=== PATIENT | female | born 1985 | race Caucasian/White ===

== ENCOUNTER 2018-01-06 18:00 | Emergency (ER) | payer OTHER, SELFPAY ==
[2018-01-06 18:01] VITALS: BP 116/77; PULSE 100; RESP 16; TEMP 35.8; BMI 36.1
--- NOTE | 2018-01-06 18:39 | ED.VISSUMM ---
- ER Visit Summary Date of Service: 01/06/18 Chief Complaint: Hemorrhoids History of Present Illness: The patient is a 32 F with history of hemorrhoids complains of rectal pain. She has diarrhea and no constipation. She saw her PCP and she has an appointment with a GI physician in 2 weeks. She has no new symptoms. She simply wants pain control. Physical Examination: Patient has a soft and nontender abdomen, rectal exam reveals 3 different small hemorrhoids, there is no thrombosis of either hemorrhoid. Emergency Department Course and Treatment: Patient will be treated with analgesia. She will be discharged in stable condition Impression: External hemorrhoids, nonthrombosed This note was generated with [employer] dictation software. It may contain incorrect words, spelling, and punctuation that were not noted in review of the chart prior to signing ED Disposition - Plan for ED Patient: Disposition: Home or Assisted Living Chief Complaint: Other, Pain/Inj Prescriptions: Hydrocodone/Acetaminophen [[place] 5-325 Tablet] 1 - 2 ea PO 4X/DAY PRN PRN 3 Days #12 tab PRN Reason: Pain Referrals: Larry Owusu, [Primary Care Provider] - 3-5 Days Additional Instructions: If you have fever chills or you noticed a hard lump or your hemorrhoids are return to the emergency department.
[2018-01-06] MEDS: oxyCODONE 5 MG Tablet PO (18:45)
[2018-01-06 19:00] VITALS: RESP 16
--- NOTE | 2018-01-06 19:01 | ED.RN ---
REVIEWED D/C INSTRUCTIONS, FOLLOW UP CARE, PRESCRIPTION, AND S/S THAT WOULD WARRANT A RETURN TO THE ED WITH PT. PT VERBALIZED AN UNDERSTANDING AND DENIES FURTHER QUESTIONS FOR THIS RN. PT SKIN P/W/D, RESP EVEN AND UNLABORED, PT A&O X 3, NO DISTRESS NOTED. PT AMBULATED OUT OF ED, GAIT STEADY.
== END 2018-01-06 19:02 | disposition home or self-care (01) ==
LOC: ED 18:56
PROVIDERS: Emergency Provider Emergency Medicine; Family Provider Student in an Organized Health Care Education/Training Program; PCP Student in an Organized Health Care Education/Training Program
DX: K64.4 Residual hemorrhoidal skin tags (principal); F32.9 Major depressive disorder, single episode, unspecified; Z79.899 Other long term (current) drug therapy
CPT/HCPCS: 99283

== ENCOUNTER 2024-11-27 18:26 | Emergency (ER) | payer OTHER, MEDICAID, SELFPAY ==
[2024-11-27 18:27] VITALS: BP 129/78; PULSE 64; RESP 18; TEMP 36.4; O2SAT 99; BMI 31.1
--- NOTE | 2024-11-27 19:29 | EDS_ITS ---
HPI History of Present Illness Chief Complaint: Nausea/Vomiting PFSH PFSH Medical History no medical history Home Medications ?Medication ?Instructions ?Recorded ?Last Taken ?Type Phenylephrine 0.25% [Catherine-Med] 1 supp RECTAL BID Unknown History fluoxetine 10 mg capsule 10 mg PO DAILY 01/06/18 Unkn own History hydrocodone-acetaminophen 5-325mg 1 - 2 ea PO 4X/DAY P RN PRN Pain 3 01/06/18 Unknown Rx 5mg-325mg days #12 tabs lactase 3,000 unit tablet (Lactaid) 3,000 unit PO TID 01/06/18 Unknown History ondansetron 4 mg disintegrating 4 mg PO Q8H PRN Nausea 01/06/18 Unknown History tablet (Zofran ODT) phentermine 37.5 mg tablet 37.5 mg PO DAILY 01/06/18 U nknown History metoclopramide HCl 5 mg tablet 5 mg PO Q8H PRN nausea and 11/27/24 Unknown Rx (Reglan) vomiting 7 days #20 tabs Allergy/AdvReac Type Severity Reaction Status Date / Time No Known Allergies Allergy Verified 11/27/24 18:29 Family History no significant family his Surgical History no surgical history Social History Smoking Status: Current every day smoker tobacco type: cigarettes and e- cigarettes EXAM Physical Exam Const Vital Signs: 11/27/24 18:27 11/27/24 20:27 11/27/24 22:00 Temperature 97.5 F L Temperature Source Oral Pulse Rate 64 50 L 64 Respiratory Rate 18 16 16 Blood Pressure 129/78 H 110/62 122/72 H Blood Pressure Mean 95 78 88 Pulse Ox 99 100 97 Oxygen Delivery Method Room Air Room Air Room Air 11/27/24 22:22 Temperature 97.5 F L Temperature Source Pulse Rate 53 L Respiratory Rate 16 Blood Pressure 116/67 Blood Pressure Mean 83 Pulse Ox 99 Oxygen Delivery Method MDM MDM MDM Narrative Medical decision making narrative: HISTORY OF PRESENT ILLNESS: Chief complaint: Nausea vomit 38-year-old female presents with nausea vomiting. Notes on Monday she found out she is about 8 weeks . She now she is vomiting Zofran is not helping. She further states in the evening she gets more nausea or vomiting. No vaginal bleeding. No passing any tissue. She is a G3, P2 REVIEW OF SYSTEMS: Pertinent positives: Nausea vomiting Pertinent negatives: Abdominal pain, vaginal bleeding PHYSICAL EXAM: Nursing triage notes reviewed, Vital signs reviewed Constitutional: please see [facility] HENT: MMM Eyes: Pupils equal round and reactive to light, Extraocular muscles intact Neck: No stridor, no JVD, full neck ROM Lungs: Clear to auscultation, No wheezing or rales. No increased work of breathing, no conversational dyspnea, no accessory muscle use, no nasal flaring. No respiratory distress noted Heart: Regular rate and rhythm, No murmurs, No rubs and No gallops, 2+ distal pulses (radial, femoral, posterior tibial) in all extremities Abdomen: Soft, there is no tenderness, rigidity, rebound or guarding, no obvious peritoneal signs, no palpable pulsatile abdominal masses, no auscultated abdominal bruit : No CVAT Extremities: No edema Neuro: No new focal neurological deficits, cranial nerves II through XII intact, 5/5 strength in all present extremities. Intact sensation to light touch in all present extremities, 2+ reflexes bilateral patella tendons. Skin: No rash or lesions noted MEDICAL DECISION MAKING: Chief Complaint: please see HPI External records reviewed: [Reviewed prior imaging. No recent ultrasounds noted Factors affecting care: First trimester Social determinants of health: History obtained from others: none Consults: none [facility] Narrative: The patient was initially hemodynamically stable, afebrile and nontoxic- appearing. Exam without peritoneal signs I considered the following differential diagnosis: Dehydration, electrolyte abnormality, miscarriage, ectopic I obtained lab to further determine if the patient was suffering from a life- threatening etiology. Initially resuscitated the patient with IV fluids, Pepcid and Reglan. ALL IMAGES (IF OBTAINED) HAVE BEEN PERSONALLY REVIEWED AND INTERPRETED BY MYSELF. CBC leukocytosis suggestive of systemic inflammation, no anemia or thrombocytopenia. Leukocytosis likely reactive from and nausea and vomiting. BMP without significant electrolyte abnormalities, there is noted to be a very mild metabolic acidosis with a bicarb of 19.7 (lab reference range 21-32). Likely related to starvation ketoacidosis as evidenced by nausea vomiting and ketonuria. Patient was given fluids, Reglan. On reevaluation patient is tolerating p.o. She is prescribed Reglan as an outpatient. Strict return precautions were discussed. Follow-up instructions were given. The patient and/or family, caregivers express understanding. The patient and/or family, caregivers agrees with the plan. Shared decision making: I will have a discussion with the patient and or visitors regarding risk/benefits of further testing or admission. They will be made aware of of the risk/benefits inherent in this decision they will be given the opportunity to voice understanding. Total critical care time today provided was at least 0 minutes. This excludes separately billable procedures. Critical care time (if documented) is secondary to the patient having high probability of clinically significant/life threatening deterioration in the patient's condition which required my urgent intervention. Impression: 1. Nausea vomiting 2. First trimester Dispo: Discharge home This note was generated with [employer] dictation software. It may contain incorrect words, spelling, and punctuation that were not noted in review of the chart prior to signing. Lab Data Labs: Laboratory Results - last 24 hr 11/27/24 11/27/24 11/27/24 19:30 21:18 22:26 WBC 13.4 H RBC 4.30 Hgb 13.2 Hct 38.5 MCV 89.5 MCH 30.7 MCHC 34.3 RDW Std Deviation 40.2 RDW Coeff of [place] 12.2 Plt Count 278 MPV 12.3 H Immature Gran % (Auto) 0.500 Neut % (Auto) 72.9 H Lymph % (Auto) 17.4 L [place] % (Auto) 8.0 Eos % (Auto) 0.5 Baso % (Auto) 0.7 Absolute Neuts (auto) 9.8 H Absolute Lymphs (auto) 2.34 Nucleated RBC % 0 Sodium 136 Potassium 3.5 Chloride 103 Carbon Dioxide 19.7 L Anion Gap 13 BUN 10 Creatinine 0.82 Estim Creat Clear Calc 102.06 Est GFR (MDRD) Non-Af 95 BUN/Creatinine Ratio 11.7 Glucose 86 Calcium 9.0 Urine Color Yellow Urine Clarity Clear Urine pH 6.0 Ur Specific [place] 1.025 Urine Protein 30 H Urine Glucose (UA) Normal Urine Ketones 150 A* Urine Occult Blood Negative Urine Nitrite Negative Urine Bilirubin Negative Urine Urobilinogen 4 H Ur Leukocyte Esterase 25 H Urine RBC 0 SEEN Urine WBC 0-5 SEEN Ur Squamous Epith Cells 0-5 SEEN Urine Bacteria 0 SEEN Urine Mucus 1+ Discharge Plan Triage Chief Complaint: Nausea/Vomiting ED Provider: Eyad Trejo Dx/Rx/DC Orders Instructions: ED , ED Vomiting (Adult) Prescriptions: New metoclopramide HCl [Reglan] 5 mg tablet 5 mg PO Q8H PRN (Reason: nausea and vomiting) 7 Days Qty: 20 0RF No Action phentermine 37.5 MG tablet 37.5 mg PO DAILY fluoxetine 10 MG capsule 10 mg PO DAILY lactase [Lactaid] 3,000 UNIT tablet 3,000 unit PO TID ondansetron [Zofran ODT] 4 MG tablet,disintegrating 4 mg PO Q8H PRN (Reason: Nausea) Phenylephrine 0.25% [Catherine-Med] 1 SUPP Suppos. 1 supp RECTAL BID hydrocodone-acetaminophen 1 EACH tablet 1 - 2 ea PO 4X/DAY PRN PRN (Reason: Pain) 3 Days Qty: 12 0RF Primary Care Provider: Larry Owusu Referrals: Larry Owusu DO [Primary Care Provider] - Print Language: Slovak
[2024-11-27 20:27] VITALS: BP 110/62; PULSE 50; RESP 16; O2SAT 100
[2024-11-27] MEDS: 0.9% Normal Saline (1000mL) 1,000 ML 999 ML IV (20:48)
[2024-11-27 20:58] LABS: Hematocrit 38.5 % (37-47); Hemoglobin 13.2 g/dL (12.0-15.0); Immature Granulocytes Count 0.070 X10^3/uL (0.0-0.0); Mean Corp Hgb Conc 34.3 g/dL (32-36); Mean Corpuscular Volume 89.5 fL (81-99); Mean Platelet Vol. 12.3 fl (6.2-12.0); NRBC Flagged by Analyzer 0 % (0-5); Platelet Count 278 K/mm3 (150-450); RBC Distribution Width CV 12.2 % (11.6-14.6); RBC Distribution Width SD 40.2 fl (35.1-43.9); Red Blood Count 4.30 M/mm3 (4.2-5.4); White Blood Count 13.4 K/mm3 (4.4-11.0)
[2024-11-27 21:23] LABS: Red Blood Cells-Urine 0 SEEN /hpf (0-5)
[2024-11-27 21:27] LABS: Color, Urine Yellow (Yellow); Glucose, Dipstick Normal (Normal); Leukocyte Esterase-Dipstick 25 /ul (Negative); Nitrite-Dipstick Negative (Negative); Occult Blood-Urine Negative /ul (Negative); Protein-Dipstick 30 mg/dl (Negative); Specific Gravity, Urine 1.025 (1.002-1.030); Urine Bilirubin Dipstick Negative (Negative)
[2024-11-27 21:41] LABS: Ketone-Dipstick 150 mg/dl (Negative)
[2024-11-27 21:42] LABS: Mucous, Urine 1+ /hpf (<or=2+); Squamous Epithelial Cells - UA 0-5 SEEN /hpf (5-10)
[2024-11-27 22:00] VITALS: BP 122/72; PULSE 64; RESP 16; O2SAT 97
[2024-11-27 22:22] VITALS: BP 116/67; PULSE 53; RESP 16; TEMP 36.4; O2SAT 99
[2024-11-27 22:48] LABS: Anion Gap 13 (5-15); BUN 10 mg/dL (4-19); BUN/Creat Ratio 11.7 RATIO (10-20); Calcium,Total 9.0 mg/dL (7.6-11.0); Carbon Dioxide 19.7 mmol/L (21.0-32.0); Chloride 103 mmol/L (98-108); Estimated Creatinine Clearance 102.06 ml/min (50-250); Glucose 86 mg/dL (70-99); Potassium 3.5 mmol/L (3.3-5.1)
== END 2024-11-27 23:05 | disposition home or self-care (01) ==
PROVIDERS: Emergency Provider Emergency Medicine; PCP Student in an Organized Health Care Education/Training Program; Visit Provider Emergency Medicine
DX: O21.9 Vomiting of pregnancy, unspecified (principal); F17.210 Nicotine dependence, cigarettes, uncomplicated; O99.331 Smoking (tobacco) complicating pregnancy, first trimester; O09.521 Supervision of elderly multigravida, first trimester; Z3A.08 8 weeks gestation of pregnancy; F17.290 Nicotine dependence, other tobacco product, uncomplicated
CPT/HCPCS: 80048; 81001; 85025; 96361; 96374; 99283; A4216

== ENCOUNTER 2024-12-13 19:04 | Emergency (ER) | payer OTHER, MEDICAID, SELFPAY ==
[2024-12-13 19:05] VITALS: BP 110/78; PULSE 63; RESP 20; TEMP 36.6; O2SAT 100; BMI 31.8
[2024-12-13 21:25] LABS: Hematocrit 38.5 % (37-47); Hemoglobin 13.1 g/dL (12.0-15.0); Immature Granulocytes Count 0.060 X10^3/uL (0.0-0.0); Mean Corp Hgb Conc 34.0 g/dL (32-36); Mean Corpuscular Volume 90.4 fL (81-99); Mean Platelet Vol. 11.7 fl (6.2-12.0); NRBC Flagged by Analyzer 0 % (0-5); Platelet Count 307 K/mm3 (150-450); RBC Distribution Width CV 12.8 % (11.6-14.6); RBC Distribution Width SD 42.4 fl (35.1-43.9); Red Blood Count 4.26 M/mm3 (4.2-5.4); White Blood Count 14.4 K/mm3 (4.4-11.0)
[2024-12-13 21:46] VITALS: BP 121/55; PULSE 50; RESP 18; O2SAT 100
[2024-12-13 22:06] LABS: Mucous, Urine 0 SEEN /hpf (<or=2+); Squamous Epithelial Cells - UA 0 SEEN /hpf (5-10)
--- NOTE | 2024-12-13 22:06 | EDS_ITS ---
HPI HPI - GI History of Present Illness Chief Complaint: Abd Pain Informant: patient Narrative Narrative: Healthy 38-year-old female approximately 10-12 weeks by dates, presenting with gradual onset dull crampy pain in the right lower quadrant wrapping around the right flank to the right low back. No urinary symptoms but she has been nauseated and vomiting for much of the so far, she has been on Zofran and Reglan as a result, and she has been producing less urine today feeling like she may be a little dehydrated. She has also been constipated lately. No blood in the stool or melena. She denies having any urinary trouble or burning or gross blood. She denies any fevers or chills. She never had any abdominal surgeries. G3, P2, she has not had an ultrasound for this and has her first appointment coming up although they have been prescribing her nausea medication. She denies colicky nature of the pain. States she had pain similar to this before that got better with IV fluids and she was little dehydrated, however it was not necessarily just on the right like this situs. She never had any kidney stones in the past. [facility] Medical History (Updated 12/13/24 @ 23:[address] Dion Hector MD) IBS (irritable bowel syndrome) Home Medications ?Medication ?Instructions ?Recorded ?Last Taken ?Type Phenylephrine 0.25% [Catherine-Med] 1 supp RECTAL BID Unknown History fluoxetine 10 mg capsule 10 mg PO DAILY 01/06/18 Unkn own History hydrocodone-acetaminophen 5-325mg 1 - 2 ea PO 4X/DAY P RN PRN Pain 3 01/06/18 Unknown Rx 5mg-325mg days #12 tabs lactase 3,000 unit tablet (Lactaid) 3,000 unit PO TID 01/06/18 Unknown History ondansetron 4 mg disintegrating 4 mg PO Q8H PRN Nausea 01/06/18 Unknown History tablet (Zofran ODT) phentermine 37.5 mg tablet 37.5 mg PO DAILY 01/06/18 U nknown History metoclopramide HCl 5 mg tablet 5 mg PO Q8H PRN nausea and 11/27/24 Unknown Rx (Reglan) vomiting 7 days #20 tabs Allergy/AdvReac Type Severity Reaction Status Date / Time No Known Allergies Allergy Verified 12/13/24 19:07 Social History Smoking Status: Current every day smoker tobacco type: cigarettes and e- cigarettes ROS ROS ED Constitutional Constitutional ED: Denies chills or fever(s) Eyes Eyes: Denies change in vision or diplopia ENT ENT ED: Denies rhinorrhea or sore throat Cardiovascular Cardiovascular: Denies chest pain or palpitations Respiratory/Chest Respiratory/Chest: Denies cough or dyspnea Gastrointestinal Gastrointestinal: Reports abdominal pain, constipation, nausea and vomiting; Denies diarrhea or melena Genitourinary Genitourinary ED: Denies dysuria or hematuria Musculoskeletal Musculoskeletal: Reports back pain; Denies neck pain Integumentary Denies abscess or rash Neurologic Neurologic: Denies headache(s), paresthesias or weakness Psychiatric Psychiatric: Denies anxiety or suicidal thoughts EXAM Physical Exam Const Vital Signs: 12/13/24 19:05 12/13/24 21:46 Temperature 97.8 F Temperature Source Temporal Pulse Rate 63 50 L Respiratory Rate 20 H 18 Blood Pressure 110/78 121/55 H Blood Pressure Mean 88 77 Pulse Ox 100 100 Oxygen Delivery Method Room Air Room Air Positive well nourished and well developed Constitutional Narrative: Well-appearing in no distress General Appearance ED: well developed and NAD HEENT Reports moist mucous membranes normocephalic and atraumatic Eyes PERRL and EOMs intact bilaterally Neck full ROM and supple Resp normal respiratory effort and clear to auscultation bilaterally Cardio regular rate, regular rhythm and no murmurs GI non-tender and non-distended GI Narrative: Really nontender abdomen. With deep palpation throughout the right pelvis and right lower quadrant, patient states it is not painful when you push, just tender. No other areas of tenderness. Negative Rovsing, negative psoas, negative obturator. Auscultation: normoactive bowel sounds Palpation: soft Back/Spine no CVA tenderness Back/Spine Narrative: Patient indicating that the pain is radiating more caudal than the CVA, down close to the SI joint/pelvic brim. General Back: other FROM Extremity normal to inspection General Extremety ED: Negative for edema, pulses abnormal or tenderness General Extremity: Negative for edema or pulses abnormal Neuro oriented x3, CN's II-XII intact bilaterally and no sensory deficits noted Sensorium / Orientation: awake and alert Motor Exam: strength 5/5 throughout Skin no rashes or lesions noted and no wounds MDM MDM MDM Narrative Medical decision making narrative: Differential includes kidney stone, appendicitis, round ligament pain, ectopic, bowel discomfort that may or may not be related to constipation, etc. Labs show mild leukocytosis of 14.4, there is not a real leftward shift although there is a slight increase in neutrophil count and slight decrease in lymphocyte count, she had this appearance 2 weeks ago when her white count was 13.4. I did bedside ultrasound, there is a single live intrauterine with heart tones around 160s, good active movement of fetus, I approximate crown-rump length is consistent with about a 10-week fetus. This is consistent with the patient's dates, last normal menstrual cycle was the last week of August. Her quantitative hCG is 88,000 consistent with what I am seeing. Patient states has a history of IBS and usually has diarrhea, and because she has been constantly taking antiemetics with scheduled Reglan throughout the day and then prn Zofran on top of that, she has been constipated lately, and states that this pain does feel somewhat similar to the type of discomfort that she has off-and-on with her IBS. She was given a liter of IV fluid and with that and oral Tylenol, the pain subsided and her nausea subsided. She was able to tolerate oral fluids and she felt much better. I reexamined her, her abdomen is still really nontender. We discussed diagnostic options. We considered CT given her leukocytosis, however my suspicion for early appendicitis is very low since on multiple examination she really is not tender. We did discuss the possibility that could exist in the early, and signs and symptoms of what progression would look like and reasons to return to the ER. We also discussed kidney stone, but she has no microscopic hematuria her pain is not severe, and a CT would not necessarily be warranted just to see given the risk of radiation to her first trimester fetus. We also discussed possible KUB to evaluate for right-sided colonic stool, but in the end decided against it. She is comfortable going home, hydrating, minimizing antiemetic use, and using fleets enemas as needed, also taking stool softener/Metamucil, she was offered enema here but declined and we discussed reasons to return and she is comfortable with that plan as is her mother. Lab Data Attestation: I reviewed the patient's lab results. Labs: Laboratory Results - last 24 hr 12/13/24 12/13/24 21:17 21:50 WBC 14.4 H RBC 4.26 Hgb 13.1 Hct 38.5 MCV 90.4 MCH 30.8 MCHC 34.0 RDW Std Deviation 42.4 RDW Coeff of [place] 12.8 Plt Count 307 MPV 11.7 Immature Gran % (Auto) 0.400 Neut % (Auto) 75.7 H Lymph % (Auto) 15.3 L [place] % (Auto) 7.2 Eos % (Auto) 0.9 Baso % (Auto) 0.5 Absolute Neuts (auto) 10.9 H Absolute Lymphs (auto) 2.21 Nucleated RBC % 0 Sodium 137 Potassium 3.8 Chloride 102 Carbon Dioxide 19.9 L Anion Gap 15 BUN 7 Creatinine 0.82 Estim Creat Clear Calc 103.15 Est GFR (MDRD) Non-Af 95 BUN/Creatinine Ratio 8.8 L Glucose 81 Calcium 9.5 Total Bilirubin 0.33 AST 13 ALT 10 Alkaline Phosphatase 46 Total Protein 7.0 Albumin 4.3 Globulin 2.7 Albumin/Globulin Ratio 1.6 Lipase 19 HCG, Quant 31820 H Urine Color Yellow Urine Clarity Clear Urine pH 5.0 Ur Specific [place] 1.025 Urine Protein 15 H Urine Glucose (UA) Normal Urine Ketones 15 H Urine Occult Blood Negative Urine Nitrite Negative Urine Bilirubin Negative Urine Urobilinogen Normal Ur Leukocyte Esterase Negative Urine RBC 0-5 SEEN Urine WBC 0-5 SEEN Ur Squamous Epith Cells 0 SEEN Urine Bacteria 0 SEEN Urine Mucus 0 SEEN Discharge Plan Triage Chief Complaint: Abd Pain ED Provider: Dion Hector Dx/Rx/DC Orders Clinical Impression: Right sided abdominal pain, First trimester , Constipation Instructions: ED Constipation (Adult) Prescriptions: No Action phentermine 37.5 MG tablet 37.5 mg PO DAILY fluoxetine 10 MG capsule 10 mg PO DAILY lactase [Lactaid] 3,000 UNIT tablet 3,000 unit PO TID ondansetron [Zofran ODT] 4 MG tablet,disintegrating 4 mg PO Q8H PRN (Reason: Nausea) Phenylephrine 0.25% [Catherine-Med] 1 SUPP Suppos. 1 supp RECTAL BID hydrocodone-acetaminophen 1 EACH tablet 1 - 2 ea PO 4X/DAY PRN PRN (Reason: Pain) 3 Days Qty: 12 0RF metoclopramide HCl [Reglan] 5 mg tablet 5 mg PO Q8H PRN (Reason: nausea and vomiting) 7 Days Qty: 20 0RF Primary Care Provider: Larry Owusu Referrals: Larry Owusu, DO [Primary Care Provider] - 3-5 Days if not improving (and/or your OB) Activity Restrictions/Additional Instructions: If you have a bowel movement, pain is increasing and not resolving, or pain becomes severe/unbearable, return to the ER for reevaluation. Consider taking a stool softener and/or MiraLAX, which you can use in several times the normal dose to act more as a laxative, as long as you are drinking plenty of water and not vomiting. Also attempt to minimize your Zofran/Reglan use which can compound constipation. You may also consider using a fleets enema for constipation. Print Language: Hungarian Disposition Disposition: Home, Self Care
[2024-12-13 22:08] LABS: AST(SGOT) 13 U/L (<=31); Alanine Aminotransfer ALT/SGPT 10 U/L (<=34); Albumin, Serum 4.3 g/dL (3.5-5.0); Alkaline Phosphatase 46 U/L (35-104); Anion Gap 15 (5-15); BUN 7 mg/dL (4-19); BUN/Creat Ratio 8.8 RATIO (10-20); Calcium,Total 9.5 mg/dL (7.6-11.0); Carbon Dioxide 19.9 mmol/L (21.0-32.0); Chloride 102 mmol/L (98-108); Estimated Creatinine Clearance 103.15 ml/min (50-250); Globulin 2.7 g/dL (2.2-4.2); Glucose 81 mg/dL (70-99); Lipase 19 U/L (13-75); Potassium 3.8 mmol/L (3.3-5.1)
--- OUTSIDE RECORDS SUMMARY | 2024-12-13 22:21 | XMS RPT_ITS | CCD ---
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 500.2500 #### [facility] [address] [place], [address] Urea nitrogen [Mass/Vol] 10 mg/dL Normal 4-19 [facility] Comment on above: Performed By: #### L 500.2500 #### [facility] [address] [place], [address] Basophil percentageOrdered B y: Eyad Trejo on 11-27-2024 Basophils/100 WBC (Bld) 0.7 % 0-1 [facility] Bilirubin Test strip Ql (U)O rdered By: Eyad Trejo on 11-27-2024 Bilirubin Ql (U) Negative Negative [facility] CBC W/Diff, Automatedon 10-31 Absolute Lymph 2.34 X10 3/uL Normal 0.83-4.51 [facility] Comment on above: Performed By: #### L 100.0100 #### [facility] [address] [place], [address] Absolute Neut 9.8 X10 3/uL High 2.0-7.7 [facility] Comment on above: Performed By: #### L 100.0100 #### [facility] [address] [place], [address] Basophils/100 WBC (Bld) 0.7 % Normal 0-1 [facility] Comment on above: Performed By: #### L 100.0100 #### [facility] [address] [place], [address] Eosinophils/100 WBC (Bld) 0.5 % Normal 0-5 [facility] Comment on above: Performed By: #### L 100.0100 #### [facility] [address] [place], [address] Erythrocyte distribution width (RBC) [Ratio] 12.2 % Normal 11.6-14.6 [facility] Comment on above: Performed By: #### L 100.0100 #### [facility] [address] [place], [address] Hematocrit (Bld) [Volume fraction] 38.5 % Normal 37-47 [facility] Comment on above: Performed By: #### L 100.0100 #### [facility] [address] [place], [address] Hemoglobin (Bld) [Mass/Vol] 13.2 g/dL Normal 12.0-15.0 [facility] Comment on above: Performed By: #### L 100.0100 #### [facility] [address] [place], [address] IG% 0.500 Normal 0.0-0.9 [facility] Comment on above: Result Comment: IG% - Immature Granulocytes (promyelocytes, myelocytes and metamyelocytes) > 1% indicates that a LEFT SHIFT is Present. Performed By: #### L 100.0100 #### [facility] [address] [place], [address] Lymphocytes/100 WBC (Bld) 17.4 % Low 19-41 [facility] Comment on above: Performed By: #### L 100.0100 #### [facility] [address] [place], [address] MCH (RBC) [Entitic mass] 30.7 pg Normal 27.0-32.0 [facility] Comment on above: Performed By: #### L 100.0100 #### [facility] [address] [place], [address] MCHC (RBC) [Mass/Vol] 34.3 g/dL Normal 32-36 [facility] Comment on above: Performed By: #### L 100.0100 #### [facility] [address] [place], [address] MCV (RBC) [Entitic vol] 89.5 fL Normal 81-99 [facility] Comment on above: Performed By: #### L 100.0100 #### [facility] [address] [place], [address] Monocytes/100 WBC (Bld) 8.0 % Normal 0-10 [facility] Comment on above: Performed By: #### L 100.0100 #### [facility] [address] [place], [address] Neutrophils/100 WBC (Bld) 72.9 % High 47-70 [facility] Comment on above: Performed By: #### L 100.0100 #### [facility] [address] [place], [address] Nucleated RBC (Bld) [#/Vol] 0 10*3/uL Normal 0-5 [facility] Comment on above: Performed By: #### L 100.0100 #### [facility] [address] [place], [address] Platelet mean volume (Bld) [Entitic vol] 12.3 fL High 6.2-12.0 [facility] Comment on above: Performed By: #### L 100.0100 #### [facility] [address] [place], [address] Platelets (Bld) [#/Vol] 278 10*3/uL Normal 150-450 [facility] Comment on above: Performed By: #### L 100.0100 #### [facility] [address] [place], [address] RBC (Bld) [#/Vol] 4.30 10*6/uL Normal 4.2-5.4 [facility] Comment on above: Performed By: #### L 100.0100 #### [facility] [address] [place], [address] RDW SD 40.2 fl Normal 35.1-43.9 [facility] Comment on above: Performed By: #### L 100.0100 #### [facility] [address] [place], [address] WBC (Bld) [#/Vol] 13.4 10*3/uL High 4.4-11.0 [facility] Comment on above: Performed By: #### L 100.0100 #### [facility] [address] [place], [address] Carbon dioxide, total [Moles /volume] in Central venous bloodOrdered By: Eyad Trejo on 11-27-2024 CO2 [Moles/Vol] 19.7 mmol/L Low 21.0-32.0 [facility] Chloride assayOrdered By: Zahra Trejo on 11-27-2024 Chloride [Moles/Vol] 103 mmol/L 98-108 [facility] Emergency Department Summary on 11-27-2024 Emergency Department Summary [facility] Medical Records Department [address] [place] [address] Emergency Department Summary 11/27/24 MR#: [id number] Acct: [id number] Name: MARII LEMOS Rep #: [id number] : 1985 38 From: Eyad Trejo DO PCP: Dr. Larry More, DO Status:DEP ER Location: ED HPI History of Present Illness Chief Complaint: Nausea/Vomiting PFSH PFSH Medical History no medical history Home Medications ???Medication ???Instructions ???Recorded ???Last Taken ???Type Phenylephrine 0.25% [Catherine-Med] 1 supp RECTAL BID 01/06/18 Unknown History fluoxetine 10 mg capsule 10 mg PO DAILY 01/06/18 Unknown Hi story hydrocodone-acetamino phen 5-325mg 1 - 2 ea PO 4X/DAY PRN PRN Pain 3 01/06/18 Unknown Rx 5mg-325mg days #12 tabs lactase 3,000 unit tablet (Lactaid) 3,000 unit PO TID 01/06/18 Unkn own History ondansetron 4 mg disintegrating 4 mg PO Q8H PRN Nausea 01/06/18 Un known History tablet (Zofran ODT) phentermine 37.5 mg tablet 37.5 mg PO DAILY 01/06/18 Unknown History metoclopramide HCl 5 mg tablet 5 mg PO Q8H PRN nausea and 5 Unknown Rx (Reglan) vomiting 7 days #20 tabs Allergy/AdvReac Type Severity Reaction Status Date / Time No Known Allergies Allergy Verified 11/27/24 18:29 Family History no significant family his Surgical History no surgical history Social History Smoking Status: Current every day smoker tobacco type: cigarettes and e-cigarettes EXAM Physical Exam Const Vital Signs: 11/27/24 18:27 11/27/24 20:27 11/27/24 22:00 Temperature 97.5 F L Temperature Source Oral Pulse Rate 64 50 L 64 Respiratory Rate 18 16 16 Blood Pressure 129/78 H 110/62 122/72 H Blood Pressure Mean 95 78 88 Pulse Ox 99 100 97 Oxygen Delivery Method Room Air Room Air Room Air 11/27/24 22:22 Temperature 97.5 F L Temperature Source Pulse Rate 53 L Respiratory Rate 16 Blood Pressure 116/67 Blood Pressure Mean 83 Pulse Ox 99 Oxygen Delivery Method [facility] Narr[place] Medical decision making narrative: HISTORY OF PRESENT ILLNESS: Chief complaint: Nausea vomit 38-year-old female presents with nausea vomiting. Notes on Monday she found out she is about 8 weeks . She now she is vomiting Zofran is not helping. She further states in the evening she gets more nausea or vomiting. No vaginal bleeding. No passing any tissue. She is a G3, P2 REVIEW OF SYSTEMS: Pertinent positives: Nausea vomiting Pertinent negatives: Abdominal pain, vaginal bleeding PHYSICAL EXAM: Nursing triage notes reviewed, Vital signs reviewed Constitutional: please see [facility] HENT: MMM Eyes: Pupils equal round and reactive to light, Extraocular muscles intact Neck: No stridor, no JVD, full neck ROM Lungs: Clear to auscultation, No wheezing or rales. No increased work of breathing, no conversational dyspnea, no accessory muscle use, no nasal flaring. No respiratory distress noted Heart: Regular rate and rhythm, No murmurs, No rubs and No gallops, 2+ distal pulses (radial, femoral, posterior tibial) in all extremities Abdomen: Soft, there is no tenderness, rigidity, rebound or guarding, no obvious peritoneal signs, no palpable pulsatile abdominal masses, no auscultated abdominal bruit : No CVAT Extremities: No edema Neuro: No new focal neurological deficits, cranial nerves II through XII intact, 5/5 strength in all present extremities. Intact sensation to light touch in all present extremities, 2+ reflexes bilateral patella tendons. Skin: No rash or lesions noted MEDICAL DECISION MAKING: Chief Complaint: please see HPI External records reviewed: [Reviewed prior imaging. No recent ultrasounds noted Factors affecting care: First trimester Social determinants of health: History obtained from others: none Consults: none [facility] Narrative: The patient was initially hemodynamically stable, afebrile and nontoxic-appearing. Exam without peritoneal signs I considered the following differential diagnosis: Dehydration, electrolyte abnormality, miscarriage, ectopic I obtained lab to further determine if the patient was suffering from a life-threatening etiology. Initially resuscitated the patient with IV fluids, Pepcid and Reglan. ALL IMAGES (IF OBTAINED) HAVE BEEN PERSONALLY REVIEWED AND INTERPRETED BY MYSELF. CBC leukocytosis suggestive of systemic inflammation, no anemia or thrombocytopenia. Leukocytosis likely reactive from and nausea and vomiting. BMP without significant electrolyte abnormalities, there is noted to be a very mild metabolic acidosis with a bicarb of 19.7 (lab reference range 21-32). Likely related to starvation ketoacidosis as evidenced by nausea vomiting and ketonuria. (more content not included)... Normal [facility] Eosinophil percentageOrdered By: Eyad Trejo on 11-27-2024 Eosinophils/100 WBC (Bld) 0.5 % 0-5 [facility] Erythrocyte distribution wid th ratioOrdered By: Eyad Trejo on 11-27-2024 Erythrocyte distribution width (RBC) [Ratio] 12.2 % 11.6-14.6 [facility] Erythrocyte distribution wid th standard deviationOrdered By: Eyad Trejo on 11-27-2024 Erythrocyte distribution width (RBC) [Ratio] 40.2 fl 35.1-43.9 [facility] Glomerular filtration rate ( GFR) estimation/1.73 sq m using serum, plasma, or whole bOrdered By: Eyad Trejo on 11-27-2024 GFR/1.73 sq M.predicted among non-blacks MDRD (S/P/Bld) [Vol rate/Area] 95 mL/min/{1.73_m2} >60 [facility] Comment on above: mL/min/1.73m2 CKD-EP I Creatinine Equation (2020) Hematocrit Auto (Bld) [Volum e fraction]Ordered By: Eyad Trejo on 11-27-2024 Hematocrit (Bld) [Volume fraction] 38.5 % 37-47 [facility] Hemoglobin measurementOrdere d By: Eyad Trejo on 11-27-2024 Hemoglobin (Bld) [Mass/Vol] 13.2 g/dL 12.0-15.0 [facility] Immature granulocytes/100 WB C Auto (Bld)Ordered By: Eyad Trejo on 11-27-2024 Immature granulocytes/100 WBC (Bld) 0.500 % 0.0-0.9 [facility] Comment on above: IG% - Immature Granu locytes (promyelocytes, myelocytes and metamyelocytes) > 1% indicates that a LEFT SHIFT is Present. Ketones Test strip Ql (U)Ord ered By: Eyad Trejo on 11-27-2024 Ketones Ql (U) 150 mg/dl Abnormal Negative [facility] Comment on above: CRITICAL VALUE *HCRI TICAL VALUE CALLED TO [id number] Jessica Mccracken.RESULTS READ BACK BY SAME. MCV (mean corpuscular volume ) determinationOrdered By: Eyad Trejo on 11-27-2024 MCV (RBC) [Entitic vol] 89.5 fL 81-99 [facility] Mean corpuscular hemoglobin (MCH) determinationOrdered By: Eyad Trejo on 11-27-2024 MCH (RBC) [Entitic mass] 30.7 pg 27.0-32.0 [facility] Mean corpuscular hemoglobin concentration (MCHC) determinationOrdered By: Eyad Trejo on 11-27-2024 MCHC (RBC) [Mass/Vol] 34.3 g/dL 32-36 [facility] Mean platelet volume determi nationOrdered By: Eyad Trejo on 11-27-2024 Platelet mean volume (Bld) [Entitic vol] 12.3 fL High 6.2-12.0 [facility] Microscopic analysis of urin e for red blood cells (RBC)Ordered By: Eyad Trejo on 11-27-2024 Microscopic analysis of urine for red blood cells (RBC) 0 SEEN /hpf 0-5 [facility] Monocyte percentageOrdered B y: Eyad Trejo on 11-27-2024 Monocytes/100 WBC (Bld) 8.0 % 0-10 [facility] Mucus LM Ql (Urine sed)Order ed By: Eyad Trejo on 11-27-2024 Mucus Ql (Urine sed) 1+ /hpf [facility] Neutrophil percentageOrdered By: Eyad Trejo on 11-27-2024 Neutrophils/100 WBC (Bld) 72.9 % High 47-70 [facility] Nitrite Test strip Ql (U)Ord ered By: Eyad Trejo on 11-27-2024 Nitrite Ql (U) Negative Negative [facility] Nucleated red blood cell per centageOrdered By: Eyad Trejo on 11-27-2024 Nucleated RBC/100 WBC (Bld) [Ratio] 0 % 0-5 [facility] Platelet countOrdered By: Zahra Trejo on 11-27-2024 Platelets (Bld) [#/Vol] 278 10*3/uL 150-450 [facility] Potassium measurement (mass/ volume)Ordered By: Eyad Trejo on 11-27-2024 Potassium (Unsp spec) [Mass/Vol] 3.5 mmol/L 3.3-5.1 [facility] Protein Test strip Ql (U)Ord ered By: Eyad Trejo on 11-27-2024 Protein Ql (U) 30 mg/dl High Negative [facility] RBC Auto (Bld) [#/Vol]Ordere d By: Eyad Trejo on 11-27-2024 RBC (Bld) [#/Vol] 4.30 10*6/uL 4.2-5.4 [facility] Serum creatinine measurement (mass/volume)Ordered By: Eyad Trejo on 11-27-2024 Creatinine [Mass/Vol] 0.82 mg/dL 0.70-1.20 [facility] Serum glucose measurement (m ass/volume)Ordered By: Eyad Trejo on 11-27-2024 Glucose [Mass/Vol] 86 mg/dL 70-99 [facility] Serum or plasma calcium erna urement (mass/volume)Ordered By: Eyad Trejo on 11-27-2024 Calcium [Mass/Vol] 9.0 mg/dL 7.6-11.0 [facility] Serum or plasma urea nitroge n measurement (mass/volume)Ordered By: Eyad Trejo on 11-27-2024 Urea nitrogen [Mass/Vol] 10 mg/dL 4-19 [facility] Sodium levelOrdered By: Zuleyka Trejo on 11-27-2024 Sodium [Moles/Vol] 136 mmol/L 133-145 [facility] Squamous epithelial cells de tection in urine sediment by light microscopyOrdered By: Eyad Trejo on 11-27-2024 Epithelial cells.squamous LM Ql (Urine sed) 0-5 SEEN /hpf 5-10 [facility] Urinalysis, Completeon 11-27 EPI,SQUAMOUS 0-5 SEEN Normal 5-10 [facility] Comment on above: Order Comment: COLLE CTOR TO SPECIFY Performed By: #### L 400.0001 #### [facility] [address] [place], [address] Mucus Ql (Urine sed) 1+ /hpf Normal [facility] Comment on above: Order Comment: THEODORE CTOR TO SPECIFY Performed By: #### L 400.0001 #### [facility] [address] [place], [address] WBC 0-5 SEEN Normal 0-5 [facility] Comment on above: Order Comment: THEODORE CTOR TO SPECIFY Performed By: #### L 400.0001 #### [facility] [address] [place], [address] BACTERIA 0 SEEN Normal None Seen [facility] Comment on above: Order Comment: THEODORE CTOR TO SPECIFY Performed By: #### L 400.0001 #### [facility] [address] [place], [address] RBC 0 SEEN Normal 0-5 [facility] Comment on above: Order Comment: THEODORE CTOR TO SPECIFY Performed By: #### L 400.0001 #### [facility] [address] [place], [address] Urine clarityOrdered By: Richard Trejo on 11-27-2024 Clarity (U) Clear Clear [facility] Urine color determinationOrd ered By: Eyad Trejo on 11-27-2024 Color (U) Yellow Yellow [facility] Urine glucose detectionOrder ed By: Eyad Trejo on 11-27-2024 Glucose Ql (U) Normal mg/dl Normal [facility] Urine leukocyte esterase det ection by dipstickOrdered By: Eyad Trejo on 11-27-2024 Leukocyte esterase Test strip Ql (U) 25 /ul High Negative [facility] Urine pHOrdered By: Eyad carrion on 11-27-2024 pH (U) 6.0 [pH] 5.0 - 8.0 [facility] Urine sediment bacteria coun t by microscopy (number/high power field)Ordered By: Eyad Trejo on 11-27-2024 Bacteria LM.HPF (Urine sed) [#/Area] 0 /[HPF] None Seen [facility] Urine specific gravity measu rementOrdered By: Eyad Trejo on 11-27-2024 Specific gravity (U) [Rel density] 1.025 1.002-1.030 [facility] Urine urobilinogen measureme ntOrdered By: Eyad Trejo on 11-27-2024 Urobilinogen Ql (U) 4 mg/dl High Normal [facility] White blood cell (WBC) count Ordered By: Eyad Trejo on 11-27-2024 WBC (Bld) [#/Vol] 13.4 10*3/uL High 4.4-11.0 [facility] White blood cell countOrdere d By: Eyad Trejo on 11-27-2024 White blood cell count 0-5 SEEN /hpf 0-5 [facility] CNPNon 11-25-2024 CNPN Telephone (LAURAWAlivia) SPOTTS,MARII Green ([id number]) 1985 F Date Time Provider Department 11/25/24 MAYRA STEVENSON During your visit today, we recorded the following information about you: Mayra Ortiz, BROOKS 11/25/2024 8:29 AM Signed LMP 09/23 approximately 9wod Patient called with c/o nausea and vomiting. She is only able to keep a few sips of water down. Feels that she is becoming dehydrated. Urine is darker in color. Has had intermittent spotting and some cramping while ambulating. Inquired if patient has tried Vitamin B6 and Unisom yet since this is her third and is sick with each one. Patient states that she had left over Zofran and has been taking that once a day when it becomes severe. Discussed ER for IV hydration and antiemetics. Patient states she wants to avoid going to the ER. Her NOB isn't until 12/16/24. Please advise. BROOKS Manriquez Jennifer, MD 11/25/2024 12:10 PM Signed Sounds like she needs IV fluids. I know she doesn't want to go to the ED, but since she already has zofran there isn't much else I can give her. Krista Recinos RN 11/25/2024 12:14 PM Signed Patient notified. Agreed to go to ER. Krista Recinos RN Allergies As of Date: 11/25/2024 (No Known Allergies) Date Reviewed: 06/14/2023 Reviewed by: Caitlin Funez LPN - Fully Assessed Reason for Visit: Early OB N/V [Other] Prescriptions as of 11/25/2024 - pramoxine-hydrocortis one (PROCTOFOAM HC) rectal foam 1 Applicator by RECTAL route two times a day. - amphetamine-dextroamp hetamine XR (ADDERALL XR) 10 mg capsule Take 1 capsule by mouth once daily for 30 days. In the morning Do not start before July 26, 2023. - amphetamine-dextroamp hetamine XR (ADDERALL XR) 10 mg capsule Take 1 capsule by mouth once daily for 30 days. Do not start before June 29, 2023. - amphetamine-dextroamp hetamine XR (ADDERALL XR) 10 mg capsule Take 1 capsule by mouth once daily for 30 days. - dextroamphetamine-amp hetamine (ADDERALL) 5 mg tablet Take 1 tablet by mouth once daily as needed for up to 30 days. In the afternoon. Do not start before July 26, 2023. - dextroamphetamine-amp hetamine (ADDERALL) 5 mg tablet Take 1 tablet by mouth once daily as needed for up to 30 days. In the afternoon. Do not start before June 29, 2023. - dextroamphetamine-amp hetamine (ADDERALL) 5 mg tablet Take 1 tablet by mouth once daily as needed for up to 30 days. In the afternoon. - Drospirenone-Ethinyl Estradiol 3-0.03 mg per tablet TAKE 1 TABLET BY MOUTH DAILY. FOR CONTINUOUS USE - CAN SKIP PLACEBO WEEK AND START NEXT PACKAGE OF ACTIVE PILLS. - ondansetron orally disintegrating (ZOFRAN ODT) 4 mg disintegrating tablet Take 1 tablet by mouth every 6 hours as needed for Nausea/Vomiting. Problem List As Of Date 11/25/2024 Noted Resolved Dysfunctional uterine bleeding [N93.8] 07/18/2014 MDD (major depressive disorder) (HCC) [F32.9] 10/17/2014 Anxiety disorder [F41.9] 10/17/2014 Myopia [H52.10] 03/21/2016 Punctate keratitis of right eye [H16.141] 03/28/2016 Bright red rectal bleeding [K62.5] 06/05/2017 Loose stools [R19.5] 06/05/2017 Attention deficit disorder (ADD) in adult [F98.*02/27/2023 Well adult exam [Z00.00] 02/27/2023 Obesity, Class II, BMI 35-39.9 [E66.812] 02/27/2023 Atypical nevus of right scapular region [D22.5] 02/27/2023 Encounter Status:Closed by KRISTA RECINOS on 11/25/24 [facility] ED Prov Noteon 11-25-2024 ED Prov Note ED PROVIDER NOTE [facility] EMERGENCY [facility]PARTMENT NAME: Marii Lemos AGE: 38 y.o. : 1985 VISIT DATE: 11/25/2024 CSN: [id number] PCP: Larry More, Chief Complaint Patient presents with Emesis During 38-year-old female patient presents ER for evaluation nausea vomiting setting of known , patient states she is approximately 8 weeks by her last menstrual period however has not had an ultrasound to confirm intrauterine , has had really bad nausea vomiting in the a.m., concerned that she is becoming dehydrated, associated with abdominal cramps, no lower pelvic pain, no vaginal bleeding History reviewed. No pertinent past medical history. History reviewed. No pertinent surgical history. History reviewed. No pertinent family history. Social History [1] Previous Medications Medication Sig drospirenone-ethinyl estradioL (RISHI) 3-0.03 mg per tablet Take 1 tablet by mouth daily . FLUoxetine (PROZAC) 20 MG capsule Take 10 mg daily X 1 week; then increase to 20 mg daily. Allergies[2] Review of Systems All other systems reviewed and are negative. Patient Vitals for the past 24 hrs: BP Temp Pulse Resp SpO2 Height Weight 11/25/24 1904 (!) 138/50 98.8 degrees F (37.1 degrees C) (!) 48 16 99 % 5' 5 90.7 kg (200 lb) Physical Exam Vitals and nursing note reviewed. Constitutional: Appearance: Normal appearance. HENT: Head: Normocephalic and atraumatic. Right Ear: External ear normal. Left Ear: External ear normal. Nose: Nose normal. Mouth/Throat: Mouth: Mucous membranes are moist. Pharynx: Oropharynx is clear. Eyes: Extraocular Movements: Extraocular movements intact. Conjunctiva/sclera: Conjunctivae normal. Pupils: Pupils are equal, round, and reactive to light. Cardiovascular: Rate and Rhythm: Normal rate and regular rhythm. Musculoskeletal: General: Normal range of motion. Cervical back: Normal range of motion and neck supple. Pulmonary: Effort: Pulmonary effort is normal. Breath sounds: Normal breath sounds. Abdominal: General: Abdomen is flat. Bowel sounds are normal. Palpations: Abdomen is soft. Neurological: General: No focal deficit present. Mental Status: She is alert and oriented to person, place, and time. Mental status is at baseline. Psychiatric: Mood and Affect: Mood normal. Thought Content: Thought content normal. Laboratory & Radiographic Imaging (if done): No results found for this visit on 11/25/24. No orders to display Procedures Medical Decision Making Patient presents ER for nausea vomiting in setting of positive home she is otherwise well-appearing, no acute distress. Differential clued but not limited to hyperemesis gravidarum, ectopic , molar , electrolyte derangement. Patient understands limited evaluation can be done here given no ultrasound or beta-hCG capabilities, however she deferred transfer to [place], states she simply wants antiemetics and fluids, her labs are reassuring, she is tolerating p.o. after liter of fluids and IV Zofran, recommend close interval follow-up with her OB, return precautions discussed at length The patient has been informed that they may have pre-hypertension or hypertension based on a blood pressure reading in the Emergency Department. I recommend that the patient call the primary care provider listed on their discharge instructions or a physician of their choice as soon as possible to arrange follow-up in the next 4 weeks for further evaluation of possible pre-hypertension or hypertension. . Clinical Impression: No diagnosis found. ED Disposition None Follow-up Information Follow-up information has not been specified. Contact information for after-discharge care Follow-up information has not been specified. [1] Social History Socioeconomic History Marital status: Tobacco Use Smoking status: Never Passive exposure: Never Smokeless tobacco: Never Vaping Use Vaping status: Every Day Substances: Nicotine Substance and Sexual Activity Alcohol use: Never Drug use: Never Social Drivers of Health Financial Resource Strain: Low Risk (05/31/2023) Received from [facility] Overall Financial Resource Strain (CARDIA) Difficulty of Paying Living Expenses: Not hard at all Food Insecurity: No Food Insecurity (05/31/2023) Received from [facility] Hunger Vital Sign Worried About Running Out of Food in the Last Year: Never true Ran Out of Food in the Last Year: Never true Transportation Needs: No Transportation Needs (05/31/2023) Received from [facility] PRAPARE - Transportation Lack of Transportation (Medical): No Lack of Transportation (Non-Medical): No Physical Activity: Insufficiently Active (05/31/2023) Received from [facility] Exercise Vital Sign Days of Exercise per Week: 4 days Minutes of Exercise per (more content not included)... Normal [facility] POC BASIC METABOLIC PANEL - [facility] 11-25-2024 Chloride [Moles/Vol] 103 mmol/L Normal 98-108 [facility] Comment on above: Order Comment: [facility] has implemented the eGFR calculation approach that does not have a coefficient for race that conforms to the NKF-ASN Task Force Recommendations. CO2 [Moles/Vol] 23 mmol/L Normal 21-32 [facility] Comment on above: Order Comment: [facility] Services has implemented the eGFR calculation approach that does not have a coefficient for race that conforms to the NKF-ASN Task Force Recommendations. Creatinine [Mass/Vol] 0.90 mg/dL Normal 0.40-1.10 [facility] Comment on above: Order Comment: [facility] Services has implemented the eGFR calculation approach that does not have a coefficient for race that conforms to the NKF-ASN Task Force Recommendations. Glucose [Mass/Vol] 93 mg/dL Normal 65-99 [facility] Comment on above: Order Comment: [facility] Services has implemented the eGFR calculation approach that does not have a coefficient for race that conforms to the NKF-ASN Task Force Recommendations. POC GFR 85 mL/min/1.73 m2 Normal >=60 [facility] Comment on above: Order Comment: [facility] Services has implemented the eGFR calculation approach that does not have a coefficient for race that conforms to the NKF-ASN Task Force Recommendations. Result Comment: Teagan mated GFR was calculated using the 2020 CKD-EPI creatinine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 documented in this encounter [facility] 12-02-2024 Telephone encounter Note Patient states that she met with virtually to discuss N/V. She was instructed to alternate the Zofran and Reglan given in the ER. Patient reports that she is feeling so much better since doing this. She will run out of both before her NOB on 12/16/24. Please send in prescriptions to [facility] in [place]. Mayra Ortiz RN [facility] 11-29-2024 Instructions Ifeoma Goodman APRN.FLOR[employer] MERCHANDISER - 11/29/2024 10:49 AM EDT - Alternate your anti-nausea medicines: take Reglan, then about four hours later take Zofran, and continue alternating as needed. - Add Vitamin B6 25 mg three times a day to help with nausea. - Begin Unisom (doxylamine) at bedtime: start with half a tablet, increase to one whole tablet if needed. Expect drowsiness, so plan to rest after taking it. - Snack frequently on small amounts of bland, carbohydrate-rich foods (crackers, pretzels) or enjoy hydrating popsicles (watermelon, pineapple) throughout the day. Avoid spicy, greasy, or fatty foods. - Sip fluids often to stay hydrated; even small amounts can help prevent cramping and dehydration. - If you notice any spotting or bleeding, contact our office immediately. - A work?excuse letter for episodes of severe nausea and vomiting has been sent to your [employer]--print or forward it to your employer as needed. - If this regimen does not improve your nausea and vomiting by Monday, please call the office for further management. documented in this encounter [facility] 11-29-2024 Note HNO ID: [id number] Author: IFEOMA GOODMAN APRN.CNP Service: ? Author Type: Nurse Practitioner Type: Progress Notes Filed: 11/29/2024 10:49 Note Text: Obstetrics and Gynecology [place] Virtual CHEMICAL LIBRARIAN Visit Subjective This is a virtual visit using [employer] Zoom Video Visit. It required patient-provider interaction for the medical decision making as documented below. I have communicated my name and active licensure. The patient?s identity and physical location were verified at the time of this visit. Either the patient or their legal banking representative has been informed of the risks and benefits of -- and alternatives to -- treatment through a remote evaluation and consents to proceed with the evaluation remotely. Recording using NanoHorizons software for draft documentation of the visit was discussed with the patient/authorized banking representative; all questions welcomed and answered. Patient/authorized banking representative agreed to proceed CHIEF COMPLAINT: The patient is a 38-year-old female, , presenting with severe nausea and vomiting during her current . HPI: Marii Lemos is a 38 year old Current - 3, Para 2 - Reports severe nausea and vomiting, leading to two ER visits this week (Monday and Monday) for IV fluids and antiemetic treatment. - Initially prescribed Zofran, later switched to Reglan on Monday. - Reports alternating days of improvement and relapse; had a really good day yesterday but unable to keep anything down today despite taking Reglan this morning. - Has not taken Zofran today, unaware she could alternate it with Reglan. - Expresses concern about dehydration and its impact on her , noting cramping but denies any spotting or bleeding. - Struggling to maintain hydration and nutrition, relying on small amounts of food and fluids like popsicles and watermelon. - Worried about her ability to work due to the severity of her symptoms, seeking medical documentation to support her need for time off. HISTORY: OB History Gravida2 Para2 Term2 Preterm0 AB0 Living2 SAB0 IAB0 Ectopic0 Multiple0 Live Births2 Time Clock Repairer History LMP: 05/15/2023 (Approximate), Having periods Age at Menarche: Age at First : Age at Menopause: Time Clock Repairer History Comments: Sexual Activity: Yes; Male Contraception: Condom, Pill 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 FAMILY HISTORY Problem Relation Age of Onset Thyroid Mother thyroid goiter Cancer Mother cervical Heart Father None Maternal Grandfather Alzheimer's Disease Maternal Grandfather Heart Maternal Grandfather Diabetes Maternal Grandfather Cancer Maternal Grandfather leukemia Cancer Paternal Grandmother bone None Paternal Grandfather Diabetes Paternal Grandfather Alzheimer's Disease Paternal Grandfather Social History Tobacco Use Smoking status: Former Types: Cigarettes Smokeless tobacco: Never Tobacco comments: occasional Vaping Use Vaping status: Some Days Substance Use Topics Alcohol use: No Drug use: No Current Outpatient Medications Medication Sig pramoxine-hydrocortisone (PROCTOFOAM HC) rectal foam 1 Applicator by RECTAL route two times a day. amphetamine-dextroamphetamine XR (ADDERALL XR) 10 mg capsule Take 1 capsule by mouth once daily for 30 days. In the morning Do not start before July 26, 2023. amphetamine-dextroamphetamine XR (ADDERALL XR) 10 mg capsule Take 1 capsule by mouth once daily for 30 days. Do not start before June 29, 2023. amphetamine-dextroamphetamine XR (ADDERALL XR) 10 mg capsule Take 1 capsule by mouth once daily for 30 days. dextroamphetamine-amphetamine (ADDERALL) 5 mg tablet Take 1 tablet by mouth once daily as needed for up to 30 days. In the afternoon. Do not start before July 26, 2023. dextroamphetamine-amphetamine (ADDERALL) 5 mg tablet Take 1 tablet by mouth once daily as needed for up to 30 days. In the afternoon. Do not start before June 29, 2023. dextroamphetamine-amphetamine (ADDERALL) 5 mg tablet Take 1 tablet by mouth once daily as needed for up to 30 days. In the afternoon. Drospirenone-Ethinyl Estradiol 3-0.03 mg per tablet TAKE 1 TABLET BY MOUTH DAILY. FOR CONTINUOUS USE - CAN SKIP PLACEBO WEEK AND START NEXT PACKAGE OF ACTIVE PILLS. ondansetron orally disintegrating (ZOFRAN ODT) 4 mg disintegrating tablet Take 1 tablet by mouth every 6 hours as needed for Nausea/Vomiting. No current facility-administered medications for this visit. ALLERGIES No Known Allergies REVIEW OF SYSTEMS: Gastrointestinal: (+) nausea, (+) vomiting Genitourinary: (-) vaginal bleeding Objective (more content not included)... [facility] 11-29-2024 History of Present illness Narrative Images from the original note were not included. Obstetrics and Gynecology [place] Virtual CHEMICAL LIBRARIAN Visit Subjective This is a virtual visit using [employer] Mailom Video Visit. It required patient-provider interaction for the medical decision making as documented below. I have communicated my name and active licensure. The patient s identity and physical location were verified at the time of this visit. Either the patient or their legal banking representative has been informed of the risks and benefits of -- and alternatives to -- treatment through a remote evaluation and consents to proceed with the evaluation remotely. Recording using NanoHorizons software for draft documentation of the visit was discussed with the patient/authorized banking representative; all questions welcomed and answered. Patient/authorized banking representative agreed to proceed CHIEF COMPLAINT: The patient is a 38-year-old female, , presenting with severe nausea and vomiting during her current . HPI: Marii Lemos is a 38 year old Current - 3, Para 2 - Reports severe nausea and vomiting, leading to two ER visits this week (Monday and Monday) for IV fluids and antiemetic treatment. - Initially prescribed Zofran, later switched to Reglan on Monday. - Reports alternating days of improvement and relapse; had a really good day yesterday but unable to keep anything down today despite taking Reglan this morning. - Has not taken Zofran today, unaware she could alternate it with Reglan. - Expresses concern about dehydration and its impact on her , noting cramping but denies any spotting or bleeding. - Struggling to maintain hydration and nutrition, relying on small amounts of food and fluids like popsicles and watermelon. - Worried about her ability to work due to the severity of her symptoms, seeking medical documentation to support her need for time off. HISTORY: OB History Gravida2 Para2 Term2 Preterm0 AB0 Living2 SAB0 IAB0 Ectopic0 Multiple0 Live Births2 Time Clock Repairer History LMP: 05/15/2023 (Approximate), Having periods Age at Menarche: Age at First : Age at Menopause: Time Clock Repairer History Comments: Sexual Activity: Yes; Male Contraception: Condom, Pill 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 FAMILY HISTORY Problem Relation Age of Onset Thyroid Mother thyroid goiter Cancer Mother cervical Heart Father None Maternal Grandfather Alzheimer's Disease Maternal Grandfather Heart Maternal Grandfather Diabetes Maternal Grandfather Cancer Maternal Grandfather leukemia Cancer Paternal Grandmother bone None Paternal Grandfather Diabetes Paternal Grandfather Alzheimer's Disease Paternal Grandfather Social History Tobacco Use Smoking status: Former Types: Cigarettes Smokeless tobacco: Never Tobacco comments: occasional Vaping Use Vaping status: Some Days Substance Use Topics Alcohol use: No Drug use: No Current Outpatient Medications Medication Sig pramoxine-hydrocortisone (PROCTOFOAM HC) rectal foam 1 Applicator by RECTAL route two times a day. amphetamine-dextroamphetamine XR (ADDERALL XR) 10 mg capsule Take 1 capsule by mouth once daily for 30 days. In the morning Do not start before July 26, 2023. amphetamine-dextroamphetamine XR (ADDERALL XR) 10 mg capsule Take 1 capsule by mouth once daily for 30 days. Do not start before June 29, 2023. amphetamine-dextroamphetamine XR (ADDERALL XR) 10 mg capsule Take 1 capsule by mouth once daily for 30 days. dextroamphetamine-amphetamine (ADDERALL) 5 mg tablet Take 1 tablet by mouth once daily as needed for up to 30 days. In the afternoon. Do not start before July 26, 2023. dextroamphetamine-amphetamine (ADDERALL) 5 mg tablet Take 1 tablet by mouth once daily as needed for up to 30 days. In the afternoon. Do not start before June 29, 2023. dextroamphetamine-amphetamine (ADDERALL) 5 mg tablet Take 1 tablet by mouth once daily as needed for up to 30 days. In the afternoon. Drospirenone-Ethinyl Estradiol 3-0.03 mg per tablet TAKE 1 TABLET BY MOUTH DAILY. FOR CONTINUOUS USE - CAN SKIP PLACEBO WEEK AND START NEXT PACKAGE OF ACTIVE PILLS. ondansetron orally disintegrating (ZOFRAN ODT) 4 mg disintegrating tablet Take 1 tablet by mouth every 6 hours as needed for Nausea/Vomiting. No current facility-administered medications for this visit. ALLERGIES No Known Allergies REVIEW OF SYSTEMS: Gastrointestinal: (+) nausea, (+) vomiting Genitourinary: (-) vaginal bleeding Objective PHYSICAL EXAM: GENERAL: pleasant, {female in no apparent distress A&O x 3. Assessment & Plan ASSESSMENT AND PLAN: 1. Nausea and vomiting in (HCC) (O21.9) 2. Dehydration (E86.0) - Persistent nausea and vomiting despite ER visits on Monday and Monday this week with IV fluids and antiemetics (Zofran, Reglan); symptoms are intermittent but severe, with inability to keep food down today. - Advised alternating Reglan and Zofran to improve symptom control. - Recommended starting vitamin B6 up to three times daily and Unisom (doxylamine formulation, not Benadryl-based) beginning with half a tablet at night, with education on sedative effects. - Reviewed importance of maintaining hydration and consuming small, bland, carbohydrate-rich snacks (e.g., crackers, pretzels, popsicles) throughout the day. - Explained that uterine cramping may be an early sign of dehydration in ; instructed to notify immediately if any spotting or bleeding occurs. - Provided work excuse letter for severe nausea and vomiting episodes. - Follow-up on ; instructed to call if symptoms do not improve over the weekend or worsen. Ifeoma Goodman APRN.CNP Medical Decision Making: Problems: Low: Acute, uncomplicated illness or injury Risk: Moderate: Drug management Medical Decision Making Level: 3 - Low documented in this encounter [facility] 11-25-2024 Telephone encounter Note Patient notified. Agreed to go to ER. Krista Recinos RN [facility] 11-25-2024 Miscellaneous Notes Patient notified. Agreed to go to ER. Krista Recinos RN Sounds like she needs IV fluids. I know she doesn't want to go to the ED, but since she already has zofran there isn't much else I can give her. LMP 09/23 approximately 9wod Patient called with c/o nausea and vomiting. She is only able to keep a few sips of water down. Feels that she is becoming dehydrated. Urine is darker in color. Has had intermittent spotting and some cramping while ambulating. Inquired if patient has tried Vitamin B6 and Unisom yet since this is her third and is sick with each one. Patient states that she had left over Zofran and has been taking that once a day when it becomes severe. Discussed ER for IV hydration and antiemetics. Patient states she wants to avoid going to the ER. Her NOB isn't until 12/16/24. Please advise. Mayra Ortiz RN documented in this encounter [facility] 11-25-2024 Telephone encounter Note Sounds like she needs IV fluids. I know she doesn't want to go to the ED, but since she already has zofran there isn't much else I can give her. [facility] Work Phone: 11-25-2024 Telephone encounter Note LMP 09/23 approximately 9wod Patient called with c/o nausea and vomiting. She is only able to keep a few sips of water down. Feels that she is becoming dehydrated. Urine is darker in color. Has had intermittent spotting and some cramping while ambulating. Inquired if patient has tried Vitamin B6 and Unisom yet since this is her third and is sick with each one. Patient states that she had left over Zofran and has been taking that once a day when it becomes severe. Discussed ER for IV hydration and antiemetics. Patient states she wants to avoid going to the ER. Her NOB isn't until 12/16/24. Please advise. Mayra Ortiz RN [facility] 07-05-2023 Miscellaneous Notes Patient has been assessed by specialist Larry More DO PA was denied. Stating coverage is provided when chart notes are provided, when the requested medication is prescribed by or in consultation with a specialist and member must have at least 30 days with at least 3 preferred drugs: -Preparation H ointment -Dydrocortisone 1% cream Pramoxine 1% foam Please advise. (Routing to PCP as prescribing provider is out) Samara Guthrie LPN PA required for Proctofoam HC foam. Completed via [employer], awaiting response. [id number] Samara Guthrie LPN documented in this encounter [facility] 06-13-2023 Instructions Elizabeth Osman APRN.FLORAL MERCHANDISER - 06/13/2023 10:07 AM EST Schedule with general surg. Try the proctofoam. To ER with severe symptoms. documented in this encounter [facility] 06-13-2023 History of Present illness Narrative This is a 37 year old female who presents today with: Patient presents with: ER F/U: [facility] ER 06/10 dx:hemorrhoids HISTORY OF PRESENT ILLNESS: Marii Lemos is a 37 year old female. Patient presents with: ER F/U: [facility] ER 06/10 dx:hemorrhoids Pt presents today for ER follow-up. She went to [facility] on 06/10/23. Copied and pasted from ER notes. Medical Decision Making Patient seen and evaluated for concern of hemorrhoids. Patient has a nonthrombosed hemorrhoid and was told to take her previously [id number] medication was given a hydrocortisone suppository and topical lidocaine cream provided GI follow-up for possible hemorrhoid surgery. Patient agrees assessment plan understands reasons to return was discharged stable condition Refers multiple hemorrhoids that won't go away. Refers today is day 9 of current symptoms. Refers some bleeding with wiping. Painful. Hx of hemorrhoids since . Flares maybe monthly. Denies any constipation/diarrhea/straining. She is currently using suppositories, creams, tucks, sitz baths, motrin, tylenol. Has never been evaluated by surgery for hemorrhoids. . 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 MEDICATIONS Current Outpatient Medications Medication Sig [START ON 07/26/2023] amphetamine-dextroamphetamine XR (ADDERALL XR) 10 mg capsule Take 1 capsule by mouth once daily for 30 days. In the morning Do not start before July 26, 2023. [START ON 06/29/2023] amphetamine-dextroamphetamine XR (ADDERALL XR) 10 mg capsule Take 1 capsule by mouth once daily for 30 days. Do not start before June 29, 2023. amphetamine-dextroamphetamine XR (ADDERALL XR) 10 mg capsule Take 1 capsule by mouth once daily for 30 days. [START ON 07/26/2023] dextroamphetamine-amphetamine (ADDERALL) 5 mg tablet Take 1 tablet by mouth once daily as needed for up to 30 days. In the afternoon. Do not start before July 26, 2023. [START ON 06/29/2023] dextroamphetamine-amphetamine (ADDERALL) 5 mg tablet Take 1 tablet by mouth once daily as needed for up to 30 days. In the afternoon. Do not start before June 29, 2023. dextroamphetamine-amphetamine (ADDERALL) 5 mg tablet Take 1 tablet by mouth once daily as needed for up to 30 days. In the afternoon. Drospirenone-Ethinyl Estradiol 3-0.03 mg per tablet TAKE 1 TABLET BY MOUTH DAILY. FOR CONTINUOUS USE - CAN SKIP PLACEBO WEEK AND START NEXT PACKAGE OF ACTIVE PILLS. ondansetron orally disintegrating (ZOFRAN ODT) 4 mg disintegrating tablet Take 1 tablet by mouth every 6 hours as needed for Nausea/Vomiting. LORazepam (ATIVAN) 0.5 mg Take 1 tablet by mouth once daily as needed for up to 30 days. No current facility-administered medications for this visit. FAMILY HISTORY Problem Relation Age of Onset Thyroid Mother thyroid goiter Cancer Mother cervical Heart Father None Maternal Grandfather Alzheimer's Disease Maternal Grandfather Heart Maternal Grandfather Diabetes Maternal Grandfather Cancer Maternal Grandfather leukemia Cancer Paternal Grandmother bone None Paternal Grandfather Diabetes Paternal Grandfather Alzheimer's Disease Paternal Grandfather Social History Tobacco Use Smoking status: Former Types: Cigarettes Smokeless tobacco: Never Tobacco comments: occasional Vaping Use Vaping Use: Some days Substance Use Topics Alcohol use: No Drug use: No EXAM: BP 114/86 Pulse 79 Resp 16 LMP 05/15/2023 (Approximate) SpO2 98% PHYSICAL EXAM: General Appearance: Well appearing, alert, in no acute distress, well-hydrated, well nourished.. Skin: Skin color, texture, turgor normal, no suspicious rashes or lesions. Head: Normocephalic, no masses, lesions, tenderness or abnormalities. Eyes: Anicteric sclera. Extraocular movements are intact. . Lungs: Lungs clear to auscultation. No wheezing, rhonchi, rales. Heart: RRR without murmur, gallop, or rubs. No ectopy. Neurologic: Gait normal. Rectal: Positive findings: non thrombosed external hemorrhoids. ASSESSMENT/PLAN: 1. Hemorrhoids, unspecified hemorrhoid type - ICD9: 455.6, ICD10: K64.9 Try proctofoam. Referral to gen surgery. To ER w/ severe symptoms. - PROCTOFOAM HC 1 %-1 % - CONSULT TO GENERAL SURGERY Discussed treatment plan and patient voices understanding. Patient's questions answered appropriately. Medications and potential side effects were discussed and patient voices understanding. Return to the office as scheduled or as needed for worsening/no improvement. Elizabeth Osman APRN.FLORAL MERCHANDISER documented in this encounter [facility] 02-27-2023 History of Present illness Narrative CC: Marii Lemos is a 37 year old female who presents to the office for physical HPI: Obesity, weight at 215 lbs, wants to restart adipex again if able. Has been on this years ago and tolerated well without issues. 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 ADD, stable, taking Adderall as prescribed, No SE with medication. Tolerating well. Is getting work accomplished at home and with the kids. 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 Social History: Social History Tobacco Use Smoking status: Former Types: Cigarettes Smokeless tobacco: Never Tobacco comments: occasional Vaping Use Vaping Use: Some days Substance Use Topics Alcohol use: No Drug use: No FAMILY HISTORY Problem Relation Age of Onset Thyroid Mother thyroid goiter Cancer Mother cervical Heart Father None Maternal Grandfather Alzheimer's Disease Maternal Grandfather Heart Maternal Grandfather Diabetes Maternal Grandfather Cancer Maternal Grandfather leukemia Cancer Paternal Grandmother bone None Paternal Grandfather Diabetes Paternal Grandfather Alzheimer's Disease Paternal Grandfather Current Outpatient prescriptions: Drospirenone-Ethinyl Estradiol 3-0.03 mg per tablet^TAKE 1 TABLET BY MOUTH DAILY. FOR CONTINUOUS USE - CAN SKIP PLACEBO WEEK AND START NEXT PACKAGE OF ACTIVE PILLS.^Disp: 112 tablet^Rfl: 1 [START ON 04/25/2023] amphetamine-dextroamphetamine XR (ADDERALL XR) 10 mg capsule^Take 1 capsule by mouth once daily for 30 days. In the morning Do not start before April 25, 2023.^Disp: 30 capsule^Rfl: 0 [START ON 03/28/2023] amphetamine-dextroamphetamine XR (ADDERALL XR) 10 mg capsule^Take 1 capsule by mouth once daily for 30 days. Do not start before March 28, 2023.^Disp: 30 capsule^Rfl: 0 amphetamine-dextroamphetamine XR (ADDERALL XR) 10 mg capsule^Take 1 capsule by mouth once daily for 30 days.^Disp: 30 capsule^Rfl: 0 [START ON 04/25/2023] dextroamphetamine-amphetamine (ADDERALL) 5 mg tablet^Take 1 tablet by mouth once daily as needed for up to 30 days. In the afternoon. Do not start before April 25, 2023.^Disp: 30 tablet^Rfl: 0 [START ON 03/28/2023] dextroamphetamine-amphetamine (ADDERALL) 5 mg tablet^Take 1 tablet by mouth once daily as needed for up to 30 days. In the afternoon. Do not start before March 28, 2023.^Disp: 30 tablet^Rfl: 0 dextroamphetamine-amphetamine (ADDERALL) 5 mg tablet^Take 1 tablet by mouth once daily as needed for up to 30 days. In the afternoon.^Disp: 30 tablet^Rfl: 0 ondansetron orally disintegrating (ZOFRAN ODT) 4 mg disintegrating tablet^Take 1 tablet by mouth every 6 hours as needed for Nausea/Vomiting.^Disp: 100 tablet^Rfl: 0 Allergies: ALLERGIES No Known Allergies ROS: See HPI PE: 02/27/23 1047 BP: 116/70 Pulse: 60 Resp: 16 Temp: 36.8 C (98.2 F) TempSrc: Right Tympanic Weight: 97.5 kg (215 lb) Height: 167 cm (5' 5.75) Gen: A&O, NAD, non-toxic appearing, Pleasant, cooperative HEENT: NT/AC, PERRLA, EOMs intact b/l, nares clear and patent b/l, pharynx without erythema, exudate or lesions. Uvula midline. MMM, EACs without erythema or debris. TMs pearly beard with intact landmarks b/l. Neck: supple, No cervical LAD, no thyromegaly, no carotid bruits CV: RRR, normal S1 and S2, no murmurs, no gallops, no rubs, Pulses 2+ and symmetric in UE and LE b/l Lungs: normal respiratory effort, CTA b/l, no wheezing or rhonchi or rales Abd: soft, NT, ND, +BS, no hepatosplenomegaly MS: FROM all 4 extremities Neuro: CN II-XII intact b/l, strength 5/5 b/l UE and LE, DTRs 2/4 UE and LE, sensation intact. Skin: warm, dry, intact, atypical irregular border nevus right scapular area inferior at 3 x 4 mm size ASSESSMENT/PLAN: 1. Well adult exam -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
[2024-12-13] MEDS: 0.9% Normal Saline (1000mL) 1,000 ML 999 ML IV (22:30)
[2024-12-13 22:33] LABS: hCG Titer Quant., Serum 88080 mIU/mL (<9 non-preg)
[2024-12-13 22:42] LABS: Color, Urine Yellow (Yellow); Glucose, Dipstick Normal (Normal); Ketone-Dipstick 15 mg/dl (Negative); Leukocyte Esterase-Dipstick Negative /ul (Negative); Nitrite-Dipstick Negative (Negative); Occult Blood-Urine Negative /ul (Negative); Protein-Dipstick 15 mg/dl (Negative); Specific Gravity, Urine 1.025 (1.002-1.030); Urine Bilirubin Dipstick Negative (Negative)
[2024-12-13 23:00] VITALS: BP 119/74; PULSE 63; RESP 16; O2SAT 98
[2024-12-13 23:21] LABS: Red Blood Cells-Urine 0-5 SEEN /hpf (0-5)
[2024-12-13 23:54] VITALS: BP 112/80; PULSE 64; RESP 16; TEMP 36.4; O2SAT 100
== END 2024-12-13 23:55 | disposition home or self-care (01) ==
PROVIDERS: Emergency Medicine; Emergency Provider Emergency Medicine; PCP Student in an Organized Health Care Education/Training Program; Visit Provider Emergency Medicine
DX: O99.891 Other specified diseases and conditions complicating pregnancy (principal); O09.521 Supervision of elderly multigravida, first trimester; R10.31 Right lower quadrant pain; Z3A.10 10 weeks gestation of pregnancy; O99.331 Smoking (tobacco) complicating pregnancy, first trimester; F17.290 Nicotine dependence, other tobacco product, uncomplicated; O99.611 Diseases of the digestive system complicating pregnancy, first trimester; K59.00 Constipation, unspecified
CPT/HCPCS: 80053; 81001; 83690; 84702; 85025; 99283; A4216